=== PATIENT | female | born 1950 | race American Indian/Alaskan Native ===

== ENCOUNTER 2016-05-31 07:07 | Outpatient (CLI) | payer BC ==
--- NOTE | 2016-05-31 09:50 | Mammography Report ---
Right mammogram: Routine views are compared to her prior study in September 2012. The patient had a left mastectomy. The patient has a heterogeneous moderate degree of fibroglandular density. No focal mass, architectural distortion, or suspicious calcification. The findings are unchanged compared to September 2012. CAD used. Impression: Stable right mammogram. No suspicious findings. Recommendation: Annual mammogram followup. BI-RADS CATEGORY: 1 = Negative ACR BI-RADS MAMMOGRAPHIC CODES: 0 = Needs additional imaging evaluation; 1 = Negative; 2 = Benign; 3 = Probably benign; 4 = Suspicious; 5 = Malignant; 6 = Known biopsy-proven malignancy COMMENT: 1. Dense breast tissue, i.e., adenosis, fibrocystic changes, etc., may obscure an underlying neoplasm. 2. Approximately 10% of cancers are not detected with mammography. 3. A negative mammography report should not delay biopsy if a clinically suspicious mass is present.
== END 2016-05-31 07:08 | disposition home or self-care (01) ==
LOC: MAMMO 07:07
PROVIDERS: ATTEND Internal Medicine
DX: Z12.31 Encounter for screening mammogram for malignant neoplasm of breast (principal)
CPT/HCPCS: G0202-52

== ENCOUNTER 2017-01-24 14:10 | Outpatient (CLI) | payer BC ==
[2017-01-24 14:22] LABS: Basophils % (Auto) 0.9 % (0.0-1.8); Eosinophils % (Auto) 1.9 % (0.0-4.3); Hematocrit 22.2 % (30.3-42.9); Hemoglobin 6.6 gm/dl (10.1-14.3); Mean Corpuscular HGB Conc 30 % (30-34); Platelet Count 359 K/mm3 (140-440); Red Blood Count 3.56 M/mm3 (3.65-5.03); Red Cell Distribution Width 19.2 % (13.2-15.2); White Blood Count 8.9 K/mm3 (4.5-11.0)
[2017-01-24 14:31] LABS: Mean Corpuscular Hemoglobin 19 pg (28-32); Mean Corpuscular Volume 62 fl (79-97)
== END 2017-01-24 14:11 | disposition home or self-care (01) ==
LOC: LAB 14:10
PROVIDERS: ATTEND Internal Medicine
DX: D64.9 Anemia, unspecified (principal); I10 Essential (primary) hypertension; I25.10 Atherosclerotic heart disease of native coronary artery without angina pectoris; E78.00 Pure hypercholesterolemia, unspecified; E03.9 Hypothyroidism, unspecified
CPT/HCPCS: 36415; 85025

== ENCOUNTER 2018-06-30 09:47 | Outpatient (CLI) | payer BC ==
--- NOTE | 2018-06-30 13:44 | Mammography Report ---
Right screening mammogram: Cancer survivor with left mastectomy. Routine views of the right breast compared to prior exams dating back to May 2016. There is a heterogeneous pattern. There is no architectural distortion and no mass. No interval changes compared to prior exam. CAD used. Impression: Stable right mammogram: Recommendation: Annual mammogram followup. BI-RADS CATEGORY: 1 = Negative ACR BI-RADS MAMMOGRAPHIC CODES: 0 = Needs additional imaging evaluation; 1 = Negative; 2 = Benign; 3 = Probably benign; 4 = Suspicious; 5 = Malignant; 6 = Known biopsy-proven malignancy COMMENT: 1. Dense breast tissue, i.e., adenosis, fibrocystic changes, etc., may obscure an underlying neoplasm. 2. Approximately 10% of cancers are not detected with mammography. 3. A negative mammography report should not delay biopsy if a clinically suspicious mass is present.
== END 2018-06-30 09:48 | disposition home or self-care (01) ==
LOC: MAMMO 09:47
PROVIDERS: ATTEND Internal Medicine
DX: Z12.31 Encounter for screening mammogram for malignant neoplasm of breast (principal); E78.00 Pure hypercholesterolemia, unspecified; I10 Essential (primary) hypertension; E03.9 Hypothyroidism, unspecified; K21.9 Gastro-esophageal reflux disease without esophagitis; Z90.49 Acquired absence of other specified parts of digestive tract; Z90.12 Acquired absence of left breast and nipple; Z90.710 Acquired absence of both cervix and uterus

== ENCOUNTER 2018-07-08 13:13 | Outpatient (CLI) | payer BC ==
[2018-07-08 17:35] LABS: Basophils # (Auto) 0.1 K/mm3 (0.0-0.1); Basophils % (Auto) 1.1 % (0.0-1.8); Eosinophils # (Auto) 0.1 K/mm3 (0.0-0.4); Eosinophils % (Auto) 1.5 % (0.0-4.3); Hematocrit 26.1 % (30.3-42.9); Hemoglobin 7.9 gm/dl (10.1-14.3); Lymphocytes # (Auto) 1.6 K/mm3 (1.2-5.4); Lymphocytes % (Auto) 24.6 % (13.4-35.0); Mean Corpuscular HGB Conc 30 % (30-34); Monocytes # (Auto) 0.5 K/mm3 (0.0-0.8); Platelet Count 313 K/mm3 (140-440); Red Blood Count 3.86 M/mm3 (3.65-5.03)
[2018-07-08 17:36] LABS: Mean Corpuscular Volume 68 fl (79-97); Red Cell Distribution Width 21.3 % (13.2-15.2)
[2018-07-08 17:51] LABS: % Iron Saturation 3.26 %; Alanine Aminotransferase 15 units/L (7-56); Albumin 4.4 g/dL (3.9-5); BUN/Creatinine Ratio 18; Blood Urea Nitrogen 9 mg/dL (7-17); Calcium 9.5 mg/dL (8.4-10.2); Hemolysis Index 6; Iron 12 ug/dL (37-170); Total Iron Binding Capacity 368 mcg/dL (250-450)
== END 2018-07-08 13:14 | disposition home or self-care (01) ==
LOC: LAB 13:13
PROVIDERS: ATTEND Internal Medicine Hematology & Oncology
DX: C50.812 Malignant neoplasm of overlapping sites of left female breast (principal); E78.00 Pure hypercholesterolemia, unspecified; I10 Essential (primary) hypertension; K21.9 Gastro-esophageal reflux disease without esophagitis; E03.9 Hypothyroidism, unspecified; Z90.49 Acquired absence of other specified parts of digestive tract; Z90.12 Acquired absence of left breast and nipple; Z90.710 Acquired absence of both cervix and uterus; Z90.89 Acquired absence of other organs
CPT/HCPCS: 36415; 80053; 82728; 83550; 85025; 86300

== ENCOUNTER 2018-10-14 09:40 | Outpatient (CLI) | payer BC ==
[2018-10-14 12:09] LABS: Chol/HDL Ratio 3.97 %
[2018-10-14 13:00] LABS: Free T4 (Free Thyroxine) 0.86 ng/dL (0.76-1.46)
--- NOTE | 2018-10-14 16:25 | Mammography Report ---
BONE DEXA:10/14/18 CLINICAL: Postmenopausal COMPARISON: 05/22/16 TECHNIQUE: Two site bone DEXA performed on an Hologic scanner. FINDINGS: The average BMD of the lumbar spine L1-L4 is 0.943g/cm squared with a T-score of -0.9 and a Z-score of +0.1. This compares to 0.930 g/cm squared on the last exam and represents a -1.1% change in BMD. The average BMD of the left hip is 0.790g/cm squared with a T-score of -1.2 and a Z-score of -0.5.This compares to 0.814g/cm squared on the last exam and represents a -3.0% change in BMD. IMPRESSION: 1.WHO classification: Normal with average fracture risk based on lumbar spine measurements. A slight improvement in spine BMD compared to baseline. 2.WHO classification: Osteopenia with increased fracture risk based on left hip measurements. A slight decline in left hip BMD compared to baseline. 3.The FRAX 10 year fracture probability for a major osteoporotic fracture is 3.7%. 4.The FRAX 10 year fracture probability for hip fracture is 0.3%. Note: FRAX version 3.01. Fracture probability calculated for an untreated patient. Fracture probability may be lower if the patient has received treatment. RECOMMENDATION: Clinical correlation and routine screening. DEFINITIONS: BMD = Bone Mineral Density T-score = BMD related to mean peak bone mass of young adult (mean expressed in Standard Deviation) Z-score = Age matched BMD expressed in SD World Health Organization (WHO) Diagnostic Criteria Normal T-score > -1 SD Osteopenia T-score between -1 and -2.4 SD Osteoporosis T-score -2.5 SD or below NOTE: BMD is not the only risk factor for fracture; also consider factors such as the patient's age, risk of falling, previous osteoporotic fracture, family history of osteoporotic fractures, current smoker, and low body weight. All treatment decisions require clinical judgment and consideration of individual patient factors, including patient preferences, comorbidities, previous drug use and wrist factors not captured in the FRAX model (e.g. frailty, falls, vitamin D deficiency, increased bone turnover, interval significant decline in BMD). Z-scores are not calculated if >80 years of age.
== END 2018-10-14 09:41 | disposition home or self-care (01) ==
LOC: LAB 09:40
PROVIDERS: ATTEND Internal Medicine
DX: Z51.81 Encounter for therapeutic drug level monitoring (principal); I10 Essential (primary) hypertension; E78.2 Mixed hyperlipidemia; D50.8 Other iron deficiency anemias; E03.8 Other specified hypothyroidism; E53.8 Deficiency of other specified B group vitamins; M85.88 Other specified disorders of bone density and structure, other site; E78.00 Pure hypercholesterolemia, unspecified; Z78.0 Asymptomatic menopausal state; Z90.710 Acquired absence of both cervix and uterus
CPT/HCPCS: 36415; 77080; 80061; 80185; 82747; 83516; 84439; 84443

== ENCOUNTER 2018-10-27 12:14 | Outpatient (CLI) | payer BC | END 2018-10-27 12:15 | disposition home or self-care (01) | LOC: LAB 12:14 | PROVIDERS: ATTEND Internal Medicine | DX: Z51.81 Encounter for therapeutic drug level monitoring (principal); I10 Essential (primary) hypertension; D50.8 Other iron deficiency anemias; E78.2 Mixed hyperlipidemia; E03.8 Other specified hypothyroidism; Z78.0 Asymptomatic menopausal state; E78.00 Pure hypercholesterolemia, unspecified; K21.9 Gastro-esophageal reflux disease without esophagitis; Z90.710 Acquired absence of both cervix and uterus | CPT/HCPCS: 36415; 83516 ==

== ENCOUNTER 2018-11-12 09:50 | Outpatient (CLI) | payer BC ==
[2018-11-12 10:17] LABS: Hematocrit 34.4 % (30.3-42.9); Hemoglobin 10.5 gm/dl (10.1-14.3); Mean Corpuscular HGB Conc 31 % (30-34); Mean Corpuscular Volume 75 fl (79-97); Platelet Count 239 K/mm3 (140-440); Red Blood Count 4.57 M/mm3 (3.65-5.03)
[2018-11-12 10:19] LABS: Red Cell Distribution Width 33.4 % (13.2-15.2)
[2018-11-12 11:08] LABS: Iron 66 ug/dL (37-170); Total Iron Binding Capacity 266 mcg/dL (250-450)
== END 2018-11-12 09:51 | disposition home or self-care (01) ==
LOC: LAB 09:50
PROVIDERS: ATTEND Internal Medicine Hematology & Oncology
DX: D64.9 Anemia, unspecified (principal); C50.919 Malignant neoplasm of unspecified site of unspecified female breast; E78.00 Pure hypercholesterolemia, unspecified; I10 Essential (primary) hypertension; K21.9 Gastro-esophageal reflux disease without esophagitis; E03.9 Hypothyroidism, unspecified
CPT/HCPCS: 36415; 82728; 83550; 85027; 85045; 86300

== ENCOUNTER 2018-12-31 09:56 | Outpatient (CLI) | payer BC ==
[2018-12-31 10:58] LABS: Hemoglobin 11.3 gm/dl (10.1-14.3); Mean Corpuscular HGB Conc 32 % (30-34); Mean Corpuscular Volume 81 fl (79-97); Platelet Count 231 K/mm3 (140-440); Red Blood Count 4.32 M/mm3 (3.65-5.03)
[2018-12-31 11:48] LABS: % Iron Saturation 16.22 %; Alanine Aminotransferase 25 units/L (7-56); BUN/Creatinine Ratio 24; Blood Urea Nitrogen 12 mg/dL (7-17); Calcium 10.2 mg/dL (8.4-10.2); Iron 42 ug/dL (37-170); Total Iron Binding Capacity 259 mcg/dL (250-450)
[2018-12-31 11:49] LABS: Albumin 4.6 g/dL (3.9-5); Hemolysis Index 2
== END 2018-12-31 09:57 | disposition home or self-care (01) ==
LOC: LAB 09:56
PROVIDERS: ATTEND Internal Medicine Hematology & Oncology
DX: C50.812 Malignant neoplasm of overlapping sites of left female breast (principal); D50.8 Other iron deficiency anemias; D64.9 Anemia, unspecified; E78.00 Pure hypercholesterolemia, unspecified; I10 Essential (primary) hypertension; K21.9 Gastro-esophageal reflux disease without esophagitis; E03.9 Hypothyroidism, unspecified; Z90.710 Acquired absence of both cervix and uterus
CPT/HCPCS: 36415; 80053; 82728; 83550; 85027; 86300

== ENCOUNTER 2019-03-03 06:50 | Day surgery (SDC) | payer BC ==
[2019-03-03] MEDS ORDERED: SODIUM CHLORIDE 0.9% 1000 ML 1,000 ML IV SCH (07:00)
--- NOTE | 2019-03-03 07:25 | Anesthesia Consultation ---
Anesthesia Consult and Med Hx Date of service: 03/03/19 - Airway Anesthetic Teeth Evaluation: Good ROM Head & Neck: Adequate Mental/Hyoid Distance: Adequate Mallampati Class: Class III Intubation Access Assessment: Possibly Difficult - Pre-Operative Health Status ASA Pre-Surgery Classification: ASA3 Proposed Anesthetic Plan: MAC - Pulmonary Hx Smoking: No - Cardiovascular System Hx Hypertension: Yes Hx Coronary Artery Disease: (high cholesterol) - Central Nervous System Hx Seizures: Yes - Gastrointestinal Hx Gastroesophageal Reflux Disease: Yes - Endocrine Hx Non-Insulin Dependent Diabetes: Yes Hx Hypothyroidism: Yes - Hematic Hx Anemia: Yes - Other Systems Hx Cancer: Yes (h/o breast CA)
--- NOTE | 2019-03-03 07:25 | Anesthesia Day of Surgery ---
Anesthesia Day of Surgery - Day of Surgery Patient Examined: Yes Patient H&P Reviewed: Yes Patient is NPO: Yes
[2019-03-03] MEDS ORDERED: PROPOFOL 200 MG/20 ML VIAL IV ONE (07:34)
[2019-03-03] MEDS ORDERED: WATER FOR IRRIG STERILE 1,000 ML BOTTLE ONE (07:47)
[2019-03-03] MEDS ORDERED: WATER FOR IRRIG STERILE 250 ML BOTTLE IR ONE (07:48)
--- NOTE | 2019-03-03 08:27 | Short Stay Summary ---
Short Stay Documentation Date of service: 03/03/19 - History H&P: obtained from office (Done on paper record) - Allergies and Medications Current Medications: Allergies carbamazepine [From Tegretol] Allergy (Verified 04/03/13 14:08) Unknown morphine Allergy (Verified 04/03/13 14:08) Unknown Home Medications Medication Instructions Recorded Confirmed Last Taken Type Anastrozole (Nf) 1 mg PO DAILY 12/05/15 03/03/19 03/02/19 History AtorvaSTATin [Lipitor] 40 mg PO DAILY 12/05/15 03/03/19 03/02/19 History Levothyroxine [Synthroid] 100 mcg PO QAM 12/05/15 03/03/19 03/02/19 History Lisinopril/Hydrochlorothiazide 12.5 - 20 mg PO DAILY 12/05/15 03/03/19 03/02/19 History [Zestoretic 20-12.5 mg] Dilantin 100 mg PO TID 04/15/18 03/03/19 03/02/19 History metFORMIN 1,000 mg PO BID 03/03/19 03/03/19 03/02/19 History Active Medications Sodium Chloride (Nacl 0.9% 1000 Ml) 1,000 mls @ 50 mls/hr IV DIRECT KADY Last Admin: 03/03/19 07:32 Dose: 50 mls/hr Documented by: - Brief post op/procedure progress note Date of procedure: 03/03/19 Pre-op diagnosis: Iron deficiency anemia Post-op diagnosis: other (Normal) Procedure: EGD with biopsy Anesthesia: MAC Findings: 1. Normal EGD, duodenum biopsied. Surgeon: XIAO KING Estimated blood loss: none Pathology: list (1. Duodenum) Specimen disposition: to lab Condition: stable - Disposition Condition at discharge: Good Disposition: DC-01 TO HOME OR SELFCARE Short Stay Discharge Plan Diet: regular Additional Instructions: Post Sedation D/C Instructions When you return home you may resume your regular diet unless otherwise directed. -Go directly home from the hospital and rest quietly. You may resume normal activities tomorrow. -Do NOT drive, return to work, operate any machinery or make any important personal or business decisions today. -Do NOT drink any alcohol or take nerve or sleeping drugs. They add to the effects of the medicine still present in your body. Follow up with: VAIBHAV WEAVER MD [Primary Care Provider] - 7 Days
[2019-03-03 08:39] VITALS: BP 127/61
--- NOTE | 2019-03-03 08:52 | Operative Report ---
PROCEDURE: Upper endoscopy with biopsy. PREOPERATIVE DIAGNOSIS: Iron deficiency anemia. POSTOPERATIVE DIAGNOSIS: Normal exam. SEDATION: MAC by Anesthesia. HISTORY: The patient is a 68-year-old woman with iron deficiency anemia requiring IV iron. Colonoscopy was negative last year. DESCRIPTION OF PROCEDURE: Indications, risks, and benefits were explained and consent was obtained. The patient was placed in left lateral decubitus position and sedated. Video upper endoscope was passed through the mouth and oropharynx into the descending duodenum. Scope was then gradually withdrawn with close inspection of mucosa. FINDINGS: 1. Normal esophagus. 2. Normal stomach. 3. Normal duodenum -- biopsied to rule out malabsorption. The patient tolerated the procedure well without immediate complications. IMPRESSION: 1. Normal upper endoscopy -- duodenum, biopsied. PLAN: 1. Follow up biopsies. 2. Continue monitoring of iron deficiency anemia with Dr. Garcia. JOB# [id number] HRC/NTS
[2019-03-03] MEDS ORDERED: LIDOCAINE MPF (2%) 20 MG/1 ML VIAL 5 ML ONE (11:45)
--- NOTE | 2019-03-04 13:17 | Post Anesthesia Evaluation ---
- Post Anesthesia Evaluation Patient Participated: Yes Airway Patent: Yes Stable Respiratory Function: Yes Nausea/Vomiting: No Temp > 96.8F: Yes Pain Manageable: Yes Adequeate Hydration: Yes Anesthesia Complications: No Block Receding Appropriately: Not Applicable Patient on Ventilator: No
== END 2019-03-03 08:55 | disposition home or self-care (01) ==
LOC: GIO 06:50
PROVIDERS: ATTEND Internal Medicine Gastroenterology
DX: D50.9 Iron deficiency anemia, unspecified (principal); K31.89 Other diseases of stomach and duodenum; G40.909 Epilepsy, unspecified, not intractable, without status epilepticus; E11.649 Type 2 diabetes mellitus with hypoglycemia without coma; I25.10 Atherosclerotic heart disease of native coronary artery without angina pectoris; E78.00 Pure hypercholesterolemia, unspecified; I10 Essential (primary) hypertension; K21.9 Gastro-esophageal reflux disease without esophagitis; E03.9 Hypothyroidism, unspecified; Z79.84 Long term (current) use of oral hypoglycemic drugs; Z79.899 Other long term (current) drug therapy; Z90.49 Acquired absence of other specified parts of digestive tract; Z88.8 Allergy status to other drugs, medicaments and biological substances; Z88.5 Allergy status to narcotic agent; Z85.3 Personal history of malignant neoplasm of breast; Z98.51 Tubal ligation status; Z90.710 Acquired absence of both cervix and uterus; Z98.890 Other specified postprocedural states
CPT/HCPCS: 43239; 82962; 88305; J2704; J7030

== ENCOUNTER 2019-04-14 12:10 | Outpatient (CLI) | payer BC ==
[2019-04-14 13:16] LABS: Basophils % (Auto) 0.5 % (0.0-1.8); Eosinophils # (Auto) 0.2 K/mm3 (0.0-0.4); Eosinophils % (Auto) 2.1 % (0.0-4.3); Hematocrit 26.4 % (30.3-42.9); Hemoglobin 8.2 gm/dl (10.1-14.3); Lymphocytes # (Auto) 1.5 K/mm3 (1.2-5.4); Lymphocytes % (Auto) 18.9 % (13.4-35.0); Mean Corpuscular HGB Conc 31 % (30-34); Mean Corpuscular Volume 71 fl (79-97); Monocytes # (Auto) 0.6 K/mm3 (0.0-0.8); Monocytes % (Auto) 7.5 % (0.0-7.3); Platelet Count 398 K/mm3 (140-440); Red Cell Distribution Width 16.8 % (13.2-15.2)
[2019-04-14 13:46] LABS: % Iron Saturation 5.41 %; Alanine Aminotransferase 17 units/L (7-56); Albumin 4.6 g/dL (3.9-5); BUN/Creatinine Ratio 20; Blood Urea Nitrogen 10 mg/dL (7-17); Calcium 9.4 mg/dL (8.4-10.2); Chol/HDL Ratio 2.56 %; HDL Cholesterol 62 mg/dL (40-59); Hemolysis Index 1; Iron 21 ug/dL (37-170); LDL Cholesterol,Direct 79 mg/dL (50-130); Total Iron Binding Capacity 388 mcg/dL (250-450)
[2019-04-14 13:52] LABS: Free T4 (Free Thyroxine) 1.07 ng/dL (0.76-1.46)
== END 2019-04-14 12:11 | disposition home or self-care (01) ==
LOC: LAB 12:10
PROVIDERS: ATTEND Internal Medicine
DX: Z51.81 Encounter for therapeutic drug level monitoring (principal); E53.8 Deficiency of other specified B group vitamins; E78.2 Mixed hyperlipidemia; E03.8 Other specified hypothyroidism; Z88.5 Allergy status to narcotic agent; Z88.8 Allergy status to other drugs, medicaments and biological substances
CPT/HCPCS: 36415; 80053; 80061; 80186; 82728; 82747; 83516; 83550; 84439; 84443; 85025

== ENCOUNTER 2019-08-14 18:29 | Outpatient (CLI) | payer BC ==
--- NOTE | 2019-08-14 19:18 | XRay Report ---
CHEST 2 VIEWS INDICATION / CLINICAL INFORMATION: ACUTE BRONCHITIS,BACTERIAL. COMPARISON: None available. FINDINGS: SUPPORT DEVICES: None. HEART / MEDIASTINUM: No significant abnormality. LUNGS / PLEURA: No significant pulmonary or pleural abnormality. No pneumothorax. ADDITIONAL FINDINGS: No significant additional findings. IMPRESSION: No acute finding. Signer Name: Robb Landers MD Signed: 08/14/2019 7:14 PM Workstation Name: [id number]
== END 2019-08-14 18:30 | disposition home or self-care (01) ==
LOC: XRAY 18:29
PROVIDERS: ATTEND Internal Medicine
DX: J20.8 Acute bronchitis due to other specified organisms (principal)
CPT/HCPCS: 71046

== ENCOUNTER 2019-10-20 12:19 | Outpatient (CLI) | payer BC, MEDICARE ==
[2019-10-20 13:11] LABS: Hematocrit 30.5 % (30.3-42.9); Hemoglobin 9.3 gm/dl (10.1-14.3); Mean Corpuscular HGB Conc 31 % (30-34); Mean Corpuscular Volume 78 fl (79-97); Platelet Count 310 K/mm3 (140-440); Red Cell Distribution Width 16.8 % (13.2-15.2)
[2019-10-20 14:13] LABS: Alanine Aminotransferase 12 units/L (7-56); Albumin 4.5 g/dL (3.9-5); BUN/Creatinine Ratio 15; Blood Urea Nitrogen 9 mg/dL (7-17); Calcium 9.4 mg/dL (8.4-10.2); Hemolysis Index 3; Iron 150 ug/dL (37-170)
== END 2019-10-20 12:20 | disposition home or self-care (01) ==
LOC: LAB 12:19
PROVIDERS: ATTEND Internal Medicine Hematology & Oncology
DX: C50.812 Malignant neoplasm of overlapping sites of left female breast (principal)
CPT/HCPCS: 36415; 80053; 82728; 83540; 85027; 86300

== ENCOUNTER 2020-01-18 10:49 | Outpatient (CLI) | payer BC, MEDICARE ==
[2020-01-18 11:15] LABS: Hematocrit 33.2 % (30.3-42.9); Hemoglobin 10.4 gm/dl (10.1-14.3); Mean Corpuscular HGB Conc 31 % (30-34); Mean Corpuscular Volume 74 fl (79-97); Platelet Count 293 K/mm3 (140-440); Red Blood Count 4.48 M/mm3 (3.65-5.03)
[2020-01-18 11:30] LABS: Red Cell Distribution Width 20.2 % (13.2-15.2)
[2020-01-18 11:43] LABS: Alanine Aminotransferase 40 units/L (7-56); Albumin 4.4 g/dL (3.9-5); Blood Urea Nitrogen 9 mg/dL (7-17); Calcium 9.9 mg/dL (8.4-10.2); Hemolysis Index 4
[2020-01-18 11:47] LABS: BUN/Creatinine Ratio 15
== END 2020-01-18 10:50 | disposition home or self-care (01) ==
LOC: LAB 10:49
PROVIDERS: ATTEND Internal Medicine Hematology & Oncology
DX: C50.812 Malignant neoplasm of overlapping sites of left female breast (principal)
CPT/HCPCS: 36415; 80053; 85027; 86300

== ENCOUNTER 2020-05-25 10:12 | Outpatient (CLI) | payer BC, MEDICARE ==
[2020-05-25 15:41] LABS: Basophils # (Auto) 0.1 K/mm3 (0.0-0.1); Basophils % (Auto) 0.9 % (0.0-1.8); Eosinophils # (Auto) 0.3 K/mm3 (0.0-0.4); Eosinophils % (Auto) 2.9 % (0.0-4.3); Hematocrit 32.6 % (30.3-42.9); Hemoglobin 10.3 gm/dl (10.1-14.3); Lymphocytes # (Auto) 1.6 K/mm3 (1.2-5.4); Mean Corpuscular HGB Conc 32 % (30-34); Mean Corpuscular Volume 80 fl (79-97); Monocytes # (Auto) 0.6 K/mm3 (0.0-0.8); Monocytes % (Auto) 6.4 % (0.0-7.3); Platelet Count 291 K/mm3 (140-440); Red Blood Count 4.07 M/mm3 (3.65-5.03); Red Cell Distribution Width 17.3 % (13.2-15.2)
[2020-05-25 15:57] LABS: Alanine Aminotransferase 13 units/L (7-56); Albumin 4.4 g/dL (3.9-5); Blood Urea Nitrogen 11 mg/dL (7-17); Calcium 9.6 mg/dL (8.4-10.2); Hemolysis Index 9
[2020-05-25 15:58] LABS: BUN/Creatinine Ratio 18
== END 2020-05-25 10:13 | disposition home or self-care (01) ==
LOC: LAB 10:12
PROVIDERS: ATTEND Internal Medicine Hematology & Oncology
DX: C50.812 Malignant neoplasm of overlapping sites of left female breast (principal)
CPT/HCPCS: 36415; 80053; 85025; 86300

== ENCOUNTER 2020-09-14 12:14 | Outpatient (CLI) | payer BC, MEDICARE ==
[2020-09-14 14:28] LABS: Hematocrit 33.3 % (30.3-42.9); Hemoglobin 10.7 gm/dl (10.1-14.3); Mean Corpuscular HGB Conc 32 % (30-34); Mean Corpuscular Volume 78 fl (79-97); Platelet Count 295 K/mm3 (140-440); Red Blood Count 4.28 M/mm3 (3.65-5.03); Red Cell Distribution Width 17.2 % (13.2-15.2)
[2020-09-14 14:33] LABS: Alanine Aminotransferase 11 units/L (7-56); Albumin 4.1 g/dL (3.9-5); Blood Urea Nitrogen 10 mg/dL (7-17); Calcium 9.5 mg/dL (8.4-10.2); Hemolysis Index 10
[2020-09-14 14:40] LABS: BUN/Creatinine Ratio 17
== END 2020-09-14 12:15 | disposition home or self-care (01) ==
LOC: LAB 12:14
PROVIDERS: ATTEND Internal Medicine Hematology & Oncology
DX: C50.812 Malignant neoplasm of overlapping sites of left female breast (principal)
CPT/HCPCS: 36415; 80053; 85027; 86300

== ENCOUNTER 2020-09-16 09:58 | Outpatient (CLI) | payer BC, MEDICARE ==
--- NOTE | 2020-09-16 12:16 | Mammography Report ---
DIGITAL SCREENING MAMMOGRAM WITH CAD, 09/16/2020 CLINICAL INFORMATION / INDICATION: Routine screening mammography. SCREENING MAMMO TECHNIQUE: Digital right 2D mammography was obtained in the craniocaudal and mediolateral oblique pr ojections. This examination was interpreted with the benefit of Computer-Aided Detection analysis. COMPARISON: 10/04/2010 through 09/04/2019. FINDINGS: Breast Density: The breasts are heterogeneously dense, which may obscure small masses. No dominant mass, suspicious calcifications, or architectural distortion in the right breast. A few benign scattered calcifications are again noted. No new abnormality is seen. IMPRESSION: No mammographic evidence of malignancy. Follow up recommendation: Routine yearly BI-RADS Category 2: Benign. A "normal" or negative report should not discourage follow up or biopsy of a clinically significant f inding. A written summary of these findings will be mailed to the patient. The patient will be entered into a mammography reporting system which will generate a reminder letter for the patient's next appointmen t at the appropriate interval. The [employer] recommends yearly mammograms starting at age 40 and continuing as l mahsa as a woman is in good health. Breast MRI is recommended for women with an approximate 20-25% or greater lifetime risk of breast cancer, including women with a strong family history of breast or ova baljeet cancer or who have been treated for Hodgkin's disease. Signer Name: Giovany hKalil MD Signed: 09/16/2020 12:12 PM Workstation Name: [email or web address]
== END 2020-09-16 09:59 | disposition home or self-care (01) ==
LOC: MAMMO 09:58
PROVIDERS: ATTEND Internal Medicine Hematology & Oncology
DX: Z12.31 Encounter for screening mammogram for malignant neoplasm of breast (principal); C50.812 Malignant neoplasm of overlapping sites of left female breast

== ENCOUNTER 2020-09-30 11:13 | Outpatient (CLI) | payer BC, MEDICARE ==
--- NOTE | 2020-09-30 16:15 | Mammography Report ---
DEXA BONE DENSITY SCAN INDICATION / CLINICAL INFORMATION: OSTEO. 70 years Female COMPARISON: 10/14/2018 LUMBAR SPINE, L1-L4: - Bone mineral density (BMD) = 0.905 g/cm2. - T-score = -1.3 - Z-score = -0.1 Change (%) since most recent prior (if available): 4% decrease LEFT HIP, TOTAL : - Bone mineral density (BMD) = 0.782 g/cm2. - T-score = -1.3 - Z-score = -0.5 Change (%) since most recent prior (if available): 1% decrease IMPRESSION: 1. WHO Classification: Normal bone density. Fracture Risk: Not Increased. Note: 10-Year Fracture Risk FRAX: Major osteoporotic fracture-3.9%. Hip fracture-0.4% BMD Reporting Guidelines (ISCD, 2015) BMD Reporting in Postmenopausal Women and in Men Age 50 and Older - T-scores are preferred. - The WHO densitometric classification is applicable. BMD Reporting in Females Prior to Menopause and in Males Younger Than Age 50 - Z-scores, not T-scores, are preferred. This is particularly important in children. - A Z-score of -2.0 or lower is defined as below the expected range for age, and a Z-score above -2.0 is within the expected range for age. - Osteoporosis cannot be diagnosed in men under age 50 on the basis of BMD alone. - The WHO diagnostic criteria may be applied to women in the menopausal transition. http://www.iscd.org/official-positions/9992-sqmz-pakmllay-positions-adult/ Signer Name: Ace Callejas MD Signed: 09/30/2020 4:11 PM Workstation Name: [email or web address]
== END 2020-09-30 11:14 | disposition home or self-care (01) ==
LOC: MAMMO 11:13
PROVIDERS: ATTEND Obstetrics & Gynecology
DX: Z13.820 Encounter for screening for osteoporosis (principal); N95.1 Menopausal and female climacteric states
CPT/HCPCS: 77080

== ENCOUNTER 2021-01-25 11:40 | Outpatient (CLI) | payer BC, MEDICARE ==
[2021-01-25 14:43] LABS: Basophils # (Auto) 0.1 K/mm3 (0.0-0.1); Eosinophils # (Auto) 0.1 K/mm3 (0.0-0.4); Eosinophils % (Auto) 0.9 % (0.0-4.3); Hematocrit 37.3 % (30.3-42.9); Hemoglobin 11.7 gm/dl (10.1-14.3); Lymphocytes # (Auto) 1.6 K/mm3 (1.2-5.4); Lymphocytes % (Auto) 19.4 % (13.4-35.0); Mean Corpuscular HGB Conc 31 % (30-34); Mean Corpuscular Volume 81 fl (79-97); Monocytes # (Auto) 0.5 K/mm3 (0.0-0.8); Monocytes % (Auto) 5.8 % (0.0-7.3); Platelet Count 267 K/mm3 (140-440); Red Blood Count 4.63 M/mm3 (3.65-5.03); Red Cell Distribution Width 17.6 % (13.2-15.2)
[2021-01-25 14:54] LABS: Alanine Aminotransferase 23 units/L (7-56); Albumin 4.9 g/dL (3.9-5); Blood Urea Nitrogen 13 mg/dL (7-17); Calcium 11.2 mg/dL (8.4-10.2); Chol/HDL Ratio 2.96 %; HDL Cholesterol 66 mg/dL (40-59); Hemolysis Index 6; LDL Cholesterol,Direct TNR mg/dL (50-130)
[2021-01-25 15:05] LABS: Creatinine,Urine 249.3 mg/dL (0.1-20.0)
[2021-01-25 15:11] LABS: BUN/Creatinine Ratio 22
[2021-01-25 15:11] LABS: Microalbumin/Creatinine Ratio 16.4 ug/mg
== END 2021-01-25 11:41 | disposition home or self-care (01) ==
LOC: LAB 11:40
PROVIDERS: ATTEND Internal Medicine
DX: Z51.81 Encounter for therapeutic drug level monitoring (principal); C50.812 Malignant neoplasm of overlapping sites of left female breast; E03.8 Other specified hypothyroidism; E78.2 Mixed hyperlipidemia; I10 Essential (primary) hypertension
CPT/HCPCS: 36415; 80053; 80061; 80186; 82043; 84436; 84443; 85025; 86300

== ENCOUNTER 2021-03-14 10:39 | Outpatient (CLI) | payer BC, MEDICARE | END 2021-03-14 10:40 | disposition home or self-care (01) | LOC: LAB 10:39 | PROVIDERS: ATTEND Internal Medicine Hematology & Oncology | DX: C50.812 Malignant neoplasm of overlapping sites of left female breast (principal); I10 Essential (primary) hypertension | CPT/HCPCS: 36415; 86300 ==

== ENCOUNTER 2021-10-02 10:02 | Outpatient (CLI) | payer BC ==
--- NOTE | 2021-10-03 16:13 | Mammography Report ---
DIGITAL SCREENING MAMMOGRAM WITH CAD, 10/02/2021 CLINICAL INFORMATION / INDICATION: Routine screening mammography. The patient has a personal history of left breast cancer treated with mastectomy. TECHNIQUE: Digital right 2D mammography was obtained in the craniocaudal and mediolateral oblique pr ojections. This examination was interpreted with the benefit of Computer-Aided Detection analysis. COMPARISON: 09/16/2020, 09/04/2019, 06/30/2018 FINDINGS: Breast Density: The breasts are heterogeneously dense, which may obscure small masses. No dominant mass, suspicious calcifications, or architectural distortion in the right breast. There has been no significant interval change. IMPRESSION: No mammographic evidence of malignancy. Follow up recommendation: Routine yearly screening mammogram. BI-RADS Category 1: NEGATIVE A "normal" or negative report should not discourage follow up or biopsy of a clinically significant f inding. A written summary of these findings will be mailed to the patient. The patient will be entered into a mammography reporting system which will generate a reminder letter for the patient's next appointmen t at the appropriate interval. The [employer] recommends yearly mammograms starting at age 40 and continuing as l mahsa as a woman is in good health. Breast MRI is recommended for women with an approximate 20-25% or greater lifetime risk of breast cancer, including women with a strong family history of breast or ova baljeet cancer or who have been treated for Hodgkin's disease. Signer Name: Brandi Mckeon MD Signed: 10/03/2021 4:09 PM Workstation Name: [id number]
== END 2021-10-02 10:03 | disposition home or self-care (01) ==
LOC: MAMMO 10:02
PROVIDERS: ATTEND Internal Medicine Hematology & Oncology
DX: Z12.31 Encounter for screening mammogram for malignant neoplasm of breast (principal)

== ENCOUNTER 2021-12-27 08:57 | Outpatient (CLI) | payer BC ==
[2021-12-27 12:52] LABS: Hematocrit 33.8 % (30.3-42.9); Hemoglobin 10.8 gm/dl (10.1-14.3); Mean Corpuscular HGB Conc 32 % (30-34); Mean Corpuscular Volume 79 fl (79-97); Platelet Count 296 K/mm3 (140-440); Red Blood Count 4.26 M/mm3 (3.65-5.03); Red Cell Distribution Width 15.7 % (13.2-15.2)
[2021-12-27 13:16] LABS: Alanine Aminotransferase 21 units/L (7-56); Albumin 4.5 g/dL (3.9-5); Blood Urea Nitrogen 12 mg/dL (7-17); Calcium 9.9 mg/dL (8.4-10.2); Hemolysis Index 0
[2021-12-27 13:31] LABS: BUN/Creatinine Ratio 24
== END 2021-12-27 08:58 | disposition home or self-care (01) ==
LOC: LAB 08:57
PROVIDERS: ATTEND Internal Medicine Hematology & Oncology
DX: C50.812 Malignant neoplasm of overlapping sites of left female breast (principal)
CPT/HCPCS: 36415; 80053; 85027; 86300

== ENCOUNTER 2021-12-29 10:46 | Outpatient (CLI) | payer BC ==
--- NOTE | 2021-12-29 13:46 | Ultrasound Report ---
ULTRASOUND TRANSVAGINAL INDICATION / CLINICAL INFORMATION: R10.2. Pelvic pain, left groin pain TECHNIQUE: Transvaginal. Duplex Color Doppler used: Yes. COMPARISON: None available FINDINGS: UTERUS: Surgically absent. RIGHT ADNEXA: The right ovary is not visualized. No abnormality is detected in the right adnexa. LEFT ADNEXA: The left ovary is not visualized. No abnormality is detected in the left adnexa. URINARY BLADDER: Mostly empty but no gross abnormality. FREE FLUID: None. ADDITIONAL FINDINGS: None. IMPRESSION: The uterus and ovaries are not visualized. This probably represents total hysterectomy. No abnormali ty is demonstrated in the visualized pelvis. Signer Name: Yunier Fonseca Jr, MD Signed: 12/29/2021 1:42 PM Workstation Name: [id number]
== END 2021-12-29 10:47 | disposition home or self-care (01) ==
LOC: US 10:46
PROVIDERS: ATTEND Obstetrics & Gynecology
DX: R10.2 Pelvic and perineal pain (principal); Z90.710 Acquired absence of both cervix and uterus
CPT/HCPCS: 76830

== ENCOUNTER 2022-02-23 08:19 | Outpatient (CLI) | payer BC ==
--- NOTE | 2022-02-23 14:39 | Magnetic Resonance Report ---
MR cervical spine wo con INDICATION / CLINICAL INFORMATION: 71 years Female; M54.12 RADICULOPATHY, CERVICAL REGION. TECHNIQUE: Multisequence, multiplanar images of the cervical spine were obtained. COMPARISON: None available. FINDINGS: CRANIOCERVICAL JUNCTION:No significant abnormality. ALIGNMENT: There is no significant spondylolisthesis of the cervical spine. VERTEBRAE:There is anterior osteophytic formation and endplate changes at C5-6 and C6-7 without signi ficant edema. There is mild disc space narrowing posteriorly at C3-4. There is edema involving left a rticular facets at T1-L2 with suggestion of mild anterior subluxation. However, the vertebral bodies. Alignment without edema. VISUALIZED SPINAL CORD: The spondylosis at C3 L4 results in deformity of the ventral cord. However, t he cervical spinal cord appears to demonstrate appropriate signal intensity on the combination of seq uences. [id number] ANALYSIS: C2-3: No significant abnormality. C3-4: The posterior spondylosis and ligamentum flavum hypertrophy result in spinal stenosis with mode rate deformity of the cord. Additionally at, there is mild to moderate foraminal narrowing bilaterall y. C4-5: The degenerative the changes result in milder degree of flattening of the right ventral cord. A dditionally at, there is mild to moderate foraminal narrowing. C5-6: There is no disc protrusion or significant central stenosis. The neural foramen appear patent. C6-7: There is a minimal disc bulge without ossific and central spinal stenosis. The neural foramen a ppear patent. C7-T1: There is no spinal stenosis or significant foraminal narrowing. PARASPINAL SOFT TISSUES: No significant abnormality. ADDITIONAL FINDINGS: No epidural collections are identified. IMPRESSION: 1. The degenerative changes result in moderate deformity of the cord at C3-4 and milder at C4-5 as de tailed above. Additionally, there is mild to moderate foraminal narrowing at these levels. Signer Name: Kwame Chambers MD Signed: 02/23/2022 2:35 PM Workstation Name: [id number]
== END 2022-02-23 08:20 | disposition home or self-care (01) ==
LOC: MRI 08:19
PROVIDERS: ATTEND Internal Medicine Gastroenterology
DX: M47.22 Other spondylosis with radiculopathy, cervical region (principal)
CPT/HCPCS: 72141